=== PATIENT | female | born 1955 | race Caucasian/White ===

== ENCOUNTER 2020-08-18 10:18 | Outpatient (NON) | payer BC, SELFPAY ==
[2020-08-19 13:35] LABS: SARS-CoV-2 RNA PCR Positive
== END 2020-08-18 10:19 ==
PROVIDERS: PCP Family Medicine; Visit Provider Family Medicine
DX: U07.1 COVID-19 (principal)
CPT/HCPCS: 87635; C9803; U0003

== ENCOUNTER → 2020-10-04 09:18 | Outpatient (CLI) | payer BC, SELFPAY ==
--- NOTE | ~2020-10-04 | CT_ITS ---
EXAMINATION: CT lung screening EXAM DATE: 10/04/2020 09:40 INDICATION: Personal history of nicotine dependence. TECHNIQUE: Spiral low dose CT of the chest without contrast. Axial, coronal and sagittal images were reviewed. The dose-length product (DLP) for this examination was 293.54 mGy-cm. The exposure was t ailored according to patient size (auto mA exposure control), and iterative reconstruction (ASIR) was used as additional dose reduction technique. Comparison is made to prior examination from 10/03/2015 . FINDINGS: There is mild emphysema and hyperinflation. Some linear bibasilar scarring. No suspicious pulmonary nodules. Right basilar calcified granuloma. Tracheobronchial tree is patent. There is no mediastinal, hilar or axillary lymphadenopathy. There are no pleural or pericardial effusions. T here is no pneumothorax. Heart normal in size. No evidence of coronary arterial calcification. Up per abdomen is unremarkable. There is moderate thoracic spondylosis without osteoblastic or osteoly tic lesions identified. IMPRESSION: Lung-RADS category 1, negative (<1%chance of malignancy); recommend continued LDCT screen ing in 1 year. Reviewed, dictated and finalized at location B. AWYER IMPRESSION: Lung-RADS category 1, negative (<1%chance of malignancy); recommend continued LDCT screening in 1 year.
== END ==
PROVIDERS: PCP Family Medicine; Visit Provider Family Medicine
DX: E78.2 Mixed hyperlipidemia (principal); J44.9 Chronic obstructive pulmonary disease, unspecified; E66.01 Morbid (severe) obesity due to excess calories; Z79.899 Other long term (current) drug therapy
CPT/HCPCS: G0297

== ENCOUNTER → 2022-04-24 15:13 | Outpatient (CLI) | payer BC, SELFPAY ==
--- NOTE | ~2022-04-24 | CT_ITS ---
EXAMINATION: CT lung screening DATE: 04/24/2022 15:42 INDICATION: Personal history of tobacco dependence TECHNIQUE: Computed tomography (CT) of the chest was performed without intravenous contrast. The dose -length product was 285.62 mGy-cm. Automated exposure control and iterative reconstruction technique were employed. COMPARISON: CT dated 10/04/2020 FINDINGS: No significant pleural or pericardial effusion. Heart size is normal. No thoracic lymphaden opathy. There are calcified granulomas of the liver and spleen. No endobronchial lesions. Mild emphys bret. No pneumothorax. Calcified granuloma present right midlung. No new pulmonary nodules or masses. Moderate thoracic spondylosis. No acute osseous abnormality. IMPRESSION: 1. Lung-RADS category 1: Negative. Continue annual screening with noncontrast low-dose chest CT in 12 months. Reviewed, dictated and finalized at location A. IMPRESSION: 1. Lung-RADS category 1: Negative. Continue annual screening with noncontrast l ow-dose chest CT in 12 months.
== END ==
PROVIDERS: PCP Family Medicine; Visit Provider Family Medicine
DX: Z12.2 Encounter for screening for malignant neoplasm of respiratory organs (principal); Z87.891 Personal history of nicotine dependence
CPT/HCPCS: 71271

== ENCOUNTER → 2023-09-09 10:45 | Outpatient (CLI) | payer BC, SELFPAY ==
--- NOTE | ~2023-09-09 | CT_ITS ---
CT Scan of the Chest without Contrast: Clinical Indication: Lung screening, personal history of nicotine dependence Technique: Contiguous sections were acquired throughout the chest without intravenous contrast. Dose reduction technique was used on this scan by utilizing automated exposure control and iterative recon struction technique. The dose-length product (DLP) was 277.45 mGy-cm. COMPARISON: 04/24/2022 Findings: There is no evidence of any significant mediastinal, hilar or axillary lymphadenopathy. The mediastin al soft tissues appear normal. There is no evidence of pleural or pericardial effusion. There is probable minimal dependent atelectatic change in the right upper lobe. No pulmonary nodule e vident. Images through the upper abdomen reveal no abnormalities. Impression: Lung RADS 2: Benign appearance. 12 month follow-up screening CT advised. Reviewed, dictated and finalized at [facility]. ICAL NURSING MANAGER Impression: Lung RADS 2: Benign appearance. 12 month follow-up screening CT advised.
== END ==
PROVIDERS: PCP Family Medicine; Visit Provider Physician Assistant
DX: Z12.2 Encounter for screening for malignant neoplasm of respiratory organs (principal); Z87.891 Personal history of nicotine dependence
CPT/HCPCS: 71271

== ENCOUNTER 2025-09-02 09:27 | Outpatient (CLI) | payer MEDICARE, SELFPAY ==
--- NOTE | ~2025-09-02 | DEXA_ITS ---
Bone Density Report Name: AVELINA ALICEA Age: 70 Sex: Female Ethnicity: White Date of : 1955 Indication: postmenopausal; screening for osteoporosis; height loss; Referring Provider: GREG SPENCE Study: Bone densitometry was performed. Exam Date: September 02, 2025 Accession number: [id number] Bone Density: Region BMD T-score Z-score Classification AP Spine(L1-L4) 1.161 1.0 3.0 Normal Femoral Neck (Left) 0.592 -2.3 -0.6 Osteopenia Total Hip (Left) 0.877 -0.5 0.9 Normal World Health Organization criteria for BMD impression classify patients as: Normal (T-score at or above -1.0), Osteopenia (T-score between -1.0 and -2.5), or Osteoporosis (T-score at or below -2.5). 10-year Fracture Risk(1): Major Osteoporotic Fracture 10% Hip Fracture 1.9% Reported Risk Factors: [place] (), Neck BMD=0.592, BMI=48.1 (1) FRAX(R) Version 3.08. Fracture probability calculated for an untreated patient. Fracture probability may be lower if the patient has received treatment. Previous Exams: -- Region Exam Age BMD T-score BMD Change BMD Change Date g/cm2 vs Baseline vs Previous -- AP Spine (L1-L4) 09/02/2025 70 1.161 1.0 -1.3%# -1.3%# 02/25/2007 52 1.176 1.2 Total Hip(Left) 09/02/2025 70 0.877 -0.5 0.9%# 0.9%# 02/25/2007 52 0.870 -0.6 -- *Denotes significance at 95% confidence level, LSC for AP Spine = 0.022 g/cm2, LSC for Total Hip = 0.027 g/cm2 # Denotes dissimilar scan types or analysis methods Clinical Information Provided by Patient: Patient maximum height was 63 Menopause Age: 50 No regular weight bearing exercise Does not regularly consume dairy products Drinks caffeinated beverages Onset of menses at age 15 Number of children 4 Impression: The patient has low bone mass, based on the Left Femoral Neck T-score. The patient has an estimated ten-year risk of hip fracture of 1.9% and an estimated ten-year risk of major fracture of 10%, based on the WHO FRAX algorithm. Unable to evaluate interval change due to the use of different scan modes. Discussion: BONE DENSITY IS LOW AT ONE OR MORE SKELETAL SITES. This patient's lowest T-score is low at one or more skeletal sites. It meets the World Health Organization's (WHO) criteria for ?low bone mass? (T-score between -1.0 and -2.5). The patient's 10-year risk of fracture as calculated by FRAX is less than the threshold where pharmacological therapy is recommended by the National Osteoporosis Foundation (NOF). However, all treatment decisions require clinical judgment and consideration of individual patient factors, including patient preferences, comorbidities, previous drug use, risk factors not captured in the FRAX model (e.g., frailty, falls, vitamin D deficiency, increased bone turnover, interval significant decline in bone density) and possible under or overestimation of fracture risk by FRAX. The patient should follow a healthful lifestyle (good nutrition with adequate calcium and vitamin D, and appropriate weight-bearing exercise). Follow-Up: Consider repeating this study in 2 to 3 years to reassess this patient's status, or sooner if there is some new clinical indication. Reported by: TENZIN on 09/02/2025 9:50:00 AM. Reviewed, dictated and finalized at location A.
== END 2025-09-02 09:28 | disposition home or self-care (01) ==
LOC: MICIMG 09:28
PROVIDERS: PCP Family Medicine; Visit Provider Student in an Organized Health Care Education/Training Program
DX: M85.88 Other specified disorders of bone density and structure, other site (principal); Z78.0 Asymptomatic menopausal state
CPT/HCPCS: 77080

== ENCOUNTER 2025-09-10 13:03 | Emergency (ER) | payer MEDICARE, SELFPAY ==
--- OUTSIDE RECORDS SUMMARY | 2025-09-10 12:15 | XMS_ITS | Encounter Summary ---
Author Organization [facility] Healthcare Address [address] [place] [address] Care Team Providers Care Echocardiograph Technician Name Role Phone Leonard Garrido MD Unavailable [phone] Quita Garrido MD Primary Care Provider + Reason for Visit * Reason Comments URI Started a week ago t rachel, with sinus symptoms. Headache is worsening. Encounter Details Date Type Department Care Team (Late st Contact Info) Description 09/10/2025 12:15 PM DIRECTOR OF REAL ESTATE Office Visit [facility] at [address] [address] Jazmín Bills NP [address] [place] [address] [address] [place] [address] Viral upper respiratory tract infection (Primary Dx) Social History Tobacco Use Types Packs/Day Years Used Date Smoking Tobacco: Former Cigarettes 1 40 1 - 07/2016 Smokeless Tobacco: Never Alcohol Use Standard Drinks/Week Comments Yes 0 (1 standard drink = 0.6 oz pur e alcohol) 1-2 drinks/month AUDIT-C Answer Date Recorded Q1: How often do you have a drink containing alc ohol? Monthly or less 05/09/2023 Q2: How many drinks containi ng alcohol do you have on a typical day when you are drinking? 1 or 2 05/09/2023 Q3: How often do you have si x or more drinks on one occasion? Never 05/09/2023 Personal Safety Answer Date Recorded Have you ever been in or are you currently in a harmful physical or emotional relationship or is someone making you feel afraid or unsafe? Denies 05/09/2023 Comments No Sex and Gender Information Value Date Recorded Sex Assigned at Not on file Legal Sex Female 3:34 AM DIRECTOR OF REAL ESTATE Gender Identity Not on file Sexual Orientation Not on file documented as of this encounter Last Filed Vital Signs Vital Sign Reading Time Taken Comments Blood Pressure 112/84 09/10/2025 11:50 AM DIRECTOR OF REAL ESTATE Pulse 112 09/10/2025 11:50 AM DIRECTOR OF REAL ESTATE Temperature 36.9 C (98.4 F) 09/10/2025 11:50 AM DIRECTOR OF REAL ESTATE Respiratory Rate 22 09/10/2025 11:50 AM DIRECTOR OF REAL ESTATE Oxygen Saturation 95% 09/10/2025 11:50 AM DIRECTOR OF REAL ESTATE Inhaled Oxygen Concentration - - Weight 111.1 kg (245 lb) 09/10/2025 11:50 AM DIRECTOR OF REAL ESTATE Height - - Body Mass Index 46.29 12/01/2023 2:28 PM DIRECTOR OF REAL ESTATE documented in this encounter Functional Status documented as of this encounter Plan of Treatment Not on file documented as of this encounter Procedures Procedure Name Priority Date/Time Associated Diagnosis Comments POC INFLUENZA A/B, COVID-19 ANTIGEN Routine 09/10/2025 12:12 PM DIRECTOR OF REAL ESTATE Viral upper respiratory tract infection documented in this encounter Results * POC Influenza A/B, COVID-19 antigen (09/10/2025 12:12 PM DIRECTOR OF REAL ESTATE) Influenza A Ag, POC Negative Negative [facility] Influenza B Ag, POC Negative Negative [facility] COVID-19 Ag POC Presumptive Negative Presumptive Negative, Invalid [facility] Nasal 09/10/2025 12:1 2 PM DIRECTOR OF REAL ESTATE Jazmín Bills TRIAL MANAGEMENT ASSOCIATE POINT OF CARE TEST ORDERABL ES Final Result [facility] [address] [place] [address] documented in this encounter Visit Diagnoses Diagnosis Viral upper respiratory tract infection- Primary Acute upper respiratory infections of unspecified site documented in this encounter Discontinued Medications Medication Sig Discontinue Reason Start Date End Da te azithromycin (ZITHROMAX) 250 mg tablet Oral Therapy completed 12/13/2020 09/10/2025 doxycycline 100 mg tablet Take 1 tablet/capsule (100 mg total) by mouth 2 (two) times a day Therapy completed 11/26/2023 09/10/2025 documented as of this encounter Historical Medications * This list may reflect changes made after this encounter. valACYclovir (VALTREX) 1 gram tablet TAKE ONE TABLET BY MOUTH THREE TIMES A DAY FOR 7 DAYS 06/27/2025 predniSONE (DELTASONE) 50 mg tablet Take 1 tablet (50 mg) by mouth daily 09/05/2025 busPIRone (BUSPAR) 10 mg tablet Oral 12/13/2020 amoxicillin-clavu lanate (AUGMENTIN) 875-125 mg per tablet Take 1 tablet by mouth 2 (two) times a day 09/05/2025 azithromycin (ZITHROMAX) 250 mg tablet Oral 12/13/2020 09/10/2025 added in this encounter Care Teams Echocardiograph Technician Relationship Specialty Start Date End Date Quita Garrido MD PCP - General Family Medicine 11/05/22 Leonard Garrido MD 05/01/18 documented as of this encounter
--- OUTSIDE RECORDS SUMMARY | 2025-09-10 12:15 | XMS_ITS | Encounter Summary ---
Author Organization [facility] Healthcare Address [address] [place] [address] Care Team Providers Care Soda Dispenser Name Role Phone Leonard Garrido MD Unavailable [phone] Quita Garrido MD Primary Care Provider + Reason for Visit * Reason Comments URI Started a week ago t rachel, with sinus symptoms. Headache is worsening. Encounter Details Date Type Department Care Team (Late st Contact Info) Description 09/10/2025 12:15 PM POSTDOCTORAL SCHOLAR Office Visit [facility] at [address] [address] Jazmín Bills NP [address] [place] [address] [address] [place] [address] Viral upper respiratory tract infection [...] on file Legal Sex Female 3:34 AM POSTDOCTORAL SCHOLAR Gender Identity Not on file Sexual Orientation Not on file documented as of this encounter Last Filed Vital Signs Vital Sign Reading Time Taken Comments Blood Pressure 112/84 09/10/2025 11:50 AM POSTDOCTORAL SCHOLAR Pulse 112 09/10/2025 11:50 AM POSTDOCTORAL SCHOLAR Temperature 36.9 C (98.4 F) 09/10/2025 11:50 AM POSTDOCTORAL SCHOLAR Respiratory Rate 22 09/10/2025 11:50 AM POSTDOCTORAL SCHOLAR Oxygen Saturation 95% 09/10/2025 11:50 AM POSTDOCTORAL SCHOLAR Inhaled Oxygen Concentration - - Weight 111.1 kg (245 lb) 09/10/2025 11:50 AM POSTDOCTORAL SCHOLAR Height - - Body Mass Index 46.29 12/01/2023 2:28 PM POSTDOCTORAL SCHOLAR documented in this encounter Functional Status documented as of this encounter Plan of Treatment Not on file documented as of this encounter Procedures Procedure Name Priority Date/Time Associated Diagnosis Comments POC INFLUENZA A/B, COVID-19 ANTIGEN Routine 09/10/2025 12:12 PM POSTDOCTORAL SCHOLAR Viral upper respiratory tract infection documented in this encounter Results * POC Influenza A/B, COVID-19 antigen (09/10/2025 12:12 PM POSTDOCTORAL SCHOLAR) Influenza A Ag, POC Negative Negative [facility] Influenza B Ag, POC Negative Negative [facility] COVID-19 Ag POC Presumptive Negative Presumptive Negative, Invalid [facility] Nasal 09/10/2025 12:1 2 PM POSTDOCTORAL SCHOLAR Jazmín Bills WASTE DUSTER POINT OF CARE TEST ORDERABL ES Final Result [facility] [address] [place] [address] documented in this encounter Visit Diagnoses Diagnosis [...] 09/10/2025 added in this encounter Care Teams Soda Dispenser Relationship Specialty Start Date End Date Quita Garrido MD PCP - General Family Medicine 11/05/22 Leonard Garrido MD 05/01/18 documented as of this encounter
--- OUTSIDE RECORDS SUMMARY | 2025-09-10 13:06 | XMS_ITS | Clinical Summary ---
Author Organization [facility] Medical Office Building B Address [address] [place] [address] Care Team Providers Care Wood Grainer Name Role Phone Leonard Garrido MD Unavailable [phone] Quita Garrido MD Primary Care Provider + Allergies Active Allergy Reactions Criticality Noted Date Comments Shellfish Containing Products Anaphylaxis High 05/11/2018 Throat swells closed Medications pantoprazole DR (PROTONIX) 40 mg EC tabletIndicatio ns:Stress Ulcer Prophylaxis Take 1 tablet (40 mg total) by mouth nightly 1 8 Active chlorthalidone 25 mg tabletIndicatio ns:Edema Take 1 tablet (25 mg total) by mouth equalizer operator before breakfast 2 Active ALPRAZolam (XANAX) 0.25 mg tabletIndicatio ns:anxiety Take 1 tablet (0.25 mg total) by mouth 3 (three) times a day as needed for anxiety Active traMADoL (ULTRAM) 50 mg tablet Take 1 tablet (50 mg total) by mouth every 8 (eight) hours as needed for pain 42 tablet 3 Active cyclobenzaprine (FLEXERIL) 5 mg tablet Take 1 tablet (5 mg total) by mouth 3 (three) times a day as needed for muscle spasms Active albuterol HFA (PROVENTIL HFA,VENTOLIN HFA,PROAIR HFA) 90 mcg/actuation inhaler 2 INHALED EVERY 4 HOURS 3 Active Contrave 8-90 mg tablet extended release PLEASE SEE ATTACHED FOR DETAILED DIRECTIONS 4 Active meloxicam (MOBIC) 15 mg tablet 15 MG ORALLY DAILY 4 Active fluticasone-ume clidin-vilanter (Trelegy Ellipta) 200-62.5-25 mcg inhalerIndicati ons:Chronic obstructive pulmonary disease, unspecified COPD type (HCC) Inhale 1 puff daily 60 each 4 4 Active amoxicillin-cla vulanate (AUGMENTIN) 875-125 mg per tablet Take 1 tablet by mouth 2 (two) times a day 5 Active busPIRone (BUSPAR) 10 mg tablet Oral 1 Active predniSONE (DELTASONE) 50 mg tablet Take 1 tablet (50 mg) by mouth daily 5 Active valACYclovir (VALTREX) 1 gram tablet TAKE ONE TABLET BY MOUTH THREE TIMES A DAY FOR 7 DAYS 5 Active doxycycline 100 mg tablet Take 1 tablet/capsule (100 mg total) by mouth 2 (two) times a day 4 09/10/20 25 Discontin ued(Thera py completed ) azithromycin (ZITHROMAX) 250 mg tablet Oral 1 09/10/20 25 Discontin ued(Thera py completed ) Active Problems Problem Noted Date Diagnosed Date Anxiety 09/10/2025 Cardiomegaly 09/10/2025 Hearing loss, right 09/10/2025 Lumbosacral radiculopathy at L2 09/10/2025 Major depressive disorder with single episode Mixed hyperlipidemia 09/10/2025 Nicotine dependence, unspecified, in remission 1 11/10/2024 Prediabetes 09/10/2025 Chronic obstructive pulmonary disease, unspecifi ed 09/10/2025 Emphysema of lung 09/10/2025 Obesity 09/10/2025 Severe obesity (BMI >= 40) 09/10/2025 Degenerative joint disease of right hip 09/10/20 25 Chronic obstructive pulmonary disease 11/07/2023 Dyspnea and respiratory abnormalities 11/07/2023 S/P total right hip arthroplasty 05/09/2023 Primary osteoarthritis of right hip 04/01/2023 Other specified abdominal he rnia without obstruction or gangrene 08/05/2018 Overview (08/05/2018): Added automatically from request for surgery [id number] Inguinal hernia of right landy e without obstruction or gangrene 05/19/2018 Assessment & Plan (05/19/2018 3:08 PM CDT): Patient would like to surgically repair this however she is being treated for acoustic neuroma in a few weeks which takes priority, she and her were educated on symptoms of incarcerated hernia in which to have evaluated immediately. She was also educated on weight loss prior to surgery which she understands. 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 Encounters Date Type Department Care Team Description 09/10/2025 12:15 PM ELECTRONIC GAMING DEVICE SUPERVISOR Office Visit [facility] at [address] [phone] Jazmín Bills, BHARATHI Viral upper respiratory tract infection (Primary Dx) 08/09/2025 6:49 AM CDT - 08/09/2025 11:59 PM CDT Hospital Encounter [address] [address] Screening mammogram, encounter for Discharge Disposition: Discharge to home or self care from Last 3 Months Immunizations Immunization Administration Dates Next Due Hep A, Adult 09/27/2020 Hep B Vaccine 03/05/2000,09/20/1999,08/09/1999 Pneumococcal Conjugate 7-Valent 10/13/2017 Pneumococcal Conjugate PCV 13 04/16/2022 Pneumococcal Polysaccharide PPV23 03/04/2018 Tdap 03/04/2018 Surgical History Surgery Date Site/Laterality Comments CRANIECTOMY FOR EXCISION OF ACOUSTIC NEUROMA 05/30/2018 Right Right Acoustic Neuroma removed INGUINAL HERNIA REPAIR 09/01/2018 Right DaVinci Robotic Assisted Right Inguinal Hernia Repair WISDOM TOOTH EXTRACTION 10/13/1978 - 10/12/1979 TOTAL HIP ARTHROPLASTY 05/09/2023 Right Medical History Medical History Date Comments Anxiety History of anxie ty - (Added by TW Conv) Acoustic neuroma (HCC) Chronic back pain Inguinal hernia, right Deaf, right COPD (chronic obstructive pu lmonary disease) Morbid obesity (HCC) Diabetes mellitus Dxd 2021 GERD (gastroesophageal reflux disease) Family History Medical History Relation Name Comments Arthritis Father Family history of arthritis - (Added by TW Conv) Diabetes Father Family history of diabetes mellitus - (Added by TW Conv) Hypertension Father Family history of hypertension - (Added by TW Conv) Kidney disease Father Family histor y of kidney disease - (Added by TW Conv) Arthritis Mother Family history of arthritis - (Added by TW Conv) Diabetes Mother Family history of diabetes mellitus - (Added by TW Conv) Hypertension Mother Family history of hypertension - (Added by TW Conv) Cancer Other Gout Other Stroke Other Breast cancer Paternal Grandmother Hypertension Sister Anesthesia problems Neg Hx Relation Name Status Comments Father Mother Other Paternal Grandmother Sister Social History Tobacco Use Types Packs/Day Years Used Date Smoking Tobacco: Former Cigarettes 1 40 1 - 07/2016 Smokeless Tobacco: Never Tobacco Cessation:Counseling Given: Not Answered Alcohol Use Standard Drinks/Week Comments Yes 0 [...] on file Legal Sex Female 3:34 AM ELECTRONIC GAMING DEVICE SUPERVISOR Gender Identity Not on file Sexual Orientation Not on file Obstetrics History Para Term AB IAB SAB Ectopic Multiple Livin g Live Births 4 4 Date Outcome GA Total Labor Labor/2nd/3rd Weight Sex Type Anes PTL Lizzie A1 A5 Name Clin Last Filed Vital Signs Vital Sign Reading Time Taken Comments Blood Pressure 112/84 09/10/2025 11:50 AM ELECTRONIC GAMING DEVICE SUPERVISOR Pulse 112 09/10/2025 11:50 AM ELECTRONIC GAMING DEVICE SUPERVISOR Temperature 36.9 C (98.4 F) 09/10/2025 11:50 AM ELECTRONIC GAMING DEVICE SUPERVISOR Respiratory Rate 22 09/10/2025 11:50 AM ELECTRONIC GAMING DEVICE SUPERVISOR Oxygen Saturation 95% 09/10/2025 11:50 AM ELECTRONIC GAMING DEVICE SUPERVISOR Inhaled Oxygen Concentration - - Weight 111.1 kg (245 lb) 09/10/2025 11:50 AM ELECTRONIC GAMING DEVICE SUPERVISOR Height 154.9 cm (5' 1) 12/01/2023 2:28 PM ELECTRONIC GAMING DEVICE SUPERVISOR Body Mass Index 46.29 12/01/2023 2:28 PM ELECTRONIC GAMING DEVICE SUPERVISOR Plan of Treatment Health Maintenance Due Date Last Done Comments Colon Cancer Screening-Colonoscopy 1955 Depression Screening 1957 Hepatitis C Screening 1957 Osteoporosis Screening-Bone Density Scan 1957 Zoster Vaccine (1 of 2) 2007 Well Visit 65+ 2022 Fall Risk Assessment 05/09/2024 05/09/2023 Lung Cancer Screening 09/09/2024 09/09/2023 Covid-19 Vaccine (3 - season) 2025, 01/11/2021 Influenza Vaccine (#1) 2025 Breast Cancer Screening-Mammogram 08/09/2026 025 Pneumococcal vaccine 65+ (3 of 3 - PCV20 or PCV21) 04/16/2027 04/16/2022, 03/04/2018, 10/13/2017 DTaP/Tdap/Td Vaccine (2 - Td or Tdap) 03/04/2028 Hepatitis B Screening Completed 03/05/2000 , 09/20/1999, 08/09/1999 Medical Devices Implanted Type Area Inspector Golf Ball Device Identifier Shelf Expiration Date Model / Serial / Lot Medtronic Inc [id number] Progrip 15x9cm Self [employer] And Silverware Salesperson Rectangle Mesh Surgical Polyester Hernia - [id number] Implanted:Qty: 1 on 09/01/2018 by Oscar Eckert MD at [facility] N/A: Abdomen Medtronic Inc 08/12/2022 [id number] / / [id number] [employer] G7 50mm Multihole Hip D Hemisphere Offset Shell Acetabular [id number] - [id number] Implanted:Qty: 1 on 05/09/2023 by Dorie Morales MD at [facility] Right: Hip [employer] [id number] 01/17/2033 [id number] / / [id number] Blu [employer] Trilogy 6.5mm 20mm Self Tap Screw Bone [id number] - [id number] Implanted:Qty: 1 on 05/09/2023 by Dorie Morales MD at [facility] Right: Hip [employer] [id number] 10/26/2032 [id number] / / [id number] [employer] Trilogy 6.5mm 25mm Self Tap Screw Bone [id number] - [id number] Implanted:Qty: 1 on 05/09/2023 by Dorie Morales MD at [facility] Right: Hip [employer] [id number] 11/26/2032 [id number] / / [id number] [employer] G7 40mm 2 Mobility Hip D Liner Acetabular Cocr [id number] - [id number] Implanted:Qty: 1 on 05/09/2023 by Dorie Morales MD at [facility] Right: Hip [employer] [id number] 04/08/2033 [id number] / / [id number] [employer] Taperloc 144mm Type 1 Complete Press Fit Reduce Distal 133d 12 [id number] - [id number] Implanted:Qty: 1 on 05/09/2023 by Dorie Morales MD at [facility] Right: Hip [employer] [id number] 12/16/2032 [id number] / / [id number] [employer] 40mm 28mm Lumen Hip D Liner Acetabular Longevity Sterile Latex [id number] - [id number] Implanted:Qty: 1 on 05/09/2023 by Dorie Morales MD at [facility] Right: Hip [employer] [id number] 11/20/2027 [id number] / / [id number] [employer] G7 28mm Type 1 Modular Hip Acetabular 0mm Offset Head Femoral 650-1158 - [id number] Implanted:Qty: 1 on 05/09/2023 by Dorie Morales MD at [facility] Right: Hip [employer] [id number] 12/26/2031 650-1158 / / [id number] Procedures Procedure Name Priority Date/Time Associated Diagnosis Comments POC INFLUENZA A/B, COVID-19 ANTIGEN Routine 09/10/2025 12:12 PM ELECTRONIC GAMING DEVICE SUPERVISOR Viral upper respiratory tract infection SCREENING MAMMOGRAM BILATERAL W KULDIP Schedule Routine, Read Routine (OP Routine) 08/09/2025 7:02 AM CDT Screening mammogram, encounter for CT LUNG CANCER SCREENING Schedule Routine, Read Routine (OP Routine) 09/09/2023 1:55 PM ELECTRONIC GAMING DEVICE SUPERVISOR from Last 3 Months or Most Recently Relevant to Health Maintenance Results * POC Influenza A/B, COVID-19 antigen (09/10/2025 12:12 PM ELECTRONIC GAMING DEVICE SUPERVISOR) Influenza A Ag, POC Negative Negative [facility] Influenza B Ag, POC Negative Negative [facility] COVID-19 Ag POC Presumptive Negative Presumptive Negative, Invalid [facility] Nasal 09/10/2025 12:1 2 PM ELECTRONIC GAMING DEVICE SUPERVISOR Jazmín Bills HOT IRON WORKER POINT OF CARE TEST ORDERABL ES Final Result [facility] [address] [place] [address] * Screening Mammogram Bilateral W Kuldip (08/09/2025 7:02 AM CDT) Anatomical Region Laterality Modality Breast Bilateral Mammography Impressions 08/11/2025 9:19 AM CDT Bilateral No evidence of malignancy in either breast. OVERALL BI-RADS FINAL ASSESSMENT: 2 - Benign RECOMMENDATION: Recommend bilateral annual screening mammography. Narrative 08/11/2025 9:19 AM CDT EXAMINATION: Screening Mammogram Bilateral W Kuldip: 08/09/2025 COMPARISON: Relevant prior studies available at the time of interpretation were reviewed, including the most recent mammogram on: 05/07/2022. TECHNIQUE: Mammography was performed with 2D and 3D digital breast tomosynthesis (DBT) images. CAD was utilized. BREAST PARENCHYMAL COMPOSITION: There are scattered areas of fibroglandular density. FINDINGS: Bilateral There is stable nodularity in both breasts. There is no suspicious mass, calcification, or architectural distortion in either breast. us Self Screening Mammogram IMG MAMMO PROCEDURES Fi nal Result * CT Lung Cancer Screening (09/09/2023 1:55 PM ELECTRONIC GAMING DEVICE SUPERVISOR) Anatomical Region Laterality Modality Chest N/A Computed Tomogra phy us Historical Provider IMG CT PROCEDURES Final R esult from Last 3 Months or Most Recently Relevant to Health Maintenance Insurance [facility] MEDICARE MEDICARE MEDICARE [facility] Advance Directives For more information, please contact: [phone] * Full Code (Latest Code Status on File) Date Activated Date Inactivated Comments 05/09/2023 1:52 PM 05/10/2023 4:52 PM Care Teams Wood Grainer Relationship Specialty Start Date End Date Quita Garrido MD PCP - General Family Medicine 11/05/22 Leonard Garrido MD 05/01/18
--- OUTSIDE RECORDS SUMMARY | 2025-09-10 13:06 | XMS_ITS | Patient Health Record ---
Author Organization [facility] As Local[facility] Address [address] [place] [address] Care Team Providers Care Database Designer Name Role Phone Hugo Sousa Unavailable [phone] Reason For Referral No Information Medications Medication SIG (Take, Route, Frequency, Duration) Notes Start Date End Date Status busPIRone HCl 10 MG Tablet Oral 12/13/2020 Active Indomethacin ER 75 MG Capsul e Extended Release Oral 12/13/2020 Active Azithromycin 250 MG Tablet Oral 12/13/2020 Active Chlorthalidone 25 MG Tablet Oral 12/13/2020 Active Pantoprazole Sodium 40 MG Tablet Delayed Release Oral 12/13/2020 Activ e Anoro Ellipta 62.5-25 MCG/IN H Aerosol Powder Breath Activated Inhalation 12/13/2020 Active Cyclobenzaprine HCl 5 MG Tablet Oral 12/13/2020 Active Immunizations Vaccine Route Administration Date Status Comme nts Pneumococcal conjugate PCV 7 Unknown 10/13/2017 Adminis tered Social History Social History Additional Details Category Social Info Options Details Migrated Social History Migrated Social History Alcohol Intake: Occasional 09/21/2020,Tobacco Years: Former smoker 09/21/2020,Smoking Status: 38 12/13/2020 Plan Of Treatment No Information Insurance Providers Payer Name Payer Address Payer Phone Subscriber Number Group Number Insured Name Patient Relationship to Insured Coverage Start Date Coverage End Date [employer] [employer] [address] [place] [address] [id number] [place] HUGO ALICEA Self - patient is the insured Medical (General) History Surgical History Surgery Date(Month/Year) Excision of neuroma of sciatic nerve ([id number]) Neurosurgery 05/20/2018 Hernia repair w/mesh (40251) 09/12/2018
[2025-09-10 13:13] VITALS: BP 147/95; PULSE 115; RESP 20; TEMP 36.6; O2SAT 94
[2025-09-10 13:25] VITALS: RESP 20; O2SAT 93
--- OUTSIDE RECORDS SUMMARY | 2025-09-10 13:34 | XMS_ITS | Clinical Summary ---
Author Organization [facility] Medical Office Building B Address [address] [place] [address] Care Team Providers Care Payable Processor Name Role Phone Leonard Garrido MD Unavailable Quita Garrido MD Primary Care Provider + Allergies Active Allergy Reactions Criticality Noted Date Comments Shellfish Containing Products Anaphylaxis High 05/11/2018 Throat swells closed Medications pantoprazole DR (PROTONIX) 40 mg EC tabletIndicatio ns:Stress Ulcer Prophylaxis Take 1 tablet (40 mg total) by mouth nightly 1 8 Active chlorthalidone 25 mg tabletIndicatio ns:Edema Take 1 tablet (25 mg total) by mouth merit system director before breakfast 2 Active ALPRAZolam (XANAX) 0.25 [...] (08/05/2018): Added automatically from request for surgery [id number] Inguinal hernia of right landy e without [...] Department Care Team Description 09/10/2025 12:15 PM FITTER TYPE BAR AND SEGMENT Office Visit [facility]ient Care at [address] [phone] Jazmín Bills, BHARATHI Viral upper respiratory tract infection (Primary Dx) 08/09/2025 6:49 AM CDT - 08/09/2025 11:59 PM CDT Hospital Encounter [address] [address] Screening mammogram, encounter for Discharge Disposition: Discharge [...] on file Legal Sex Female 3:34 AM FITTER TYPE BAR AND SEGMENT Gender Identity Not on file Sexual Orientation Not on file Obstetrics History Para Term AB IAB SAB Ectopic Multiple Livin g Live Births 4 4 Date Outcome GA Total Labor Labor/2nd/3rd Weight Sex Type Anes PTL Lizzie A1 A5 Name Clin Last Filed Vital Signs Vital Sign Reading Time Taken Comments Blood Pressure 112/84 09/10/2025 11:50 AM FITTER TYPE BAR AND SEGMENT Pulse 112 09/10/2025 11:50 AM FITTER TYPE BAR AND SEGMENT Temperature 36.9 C (98.4 F) 09/10/2025 11:50 AM FITTER TYPE BAR AND SEGMENT Respiratory Rate 22 09/10/2025 11:50 AM FITTER TYPE BAR AND SEGMENT Oxygen Saturation 95% 09/10/2025 11:50 AM FITTER TYPE BAR AND SEGMENT Inhaled Oxygen Concentration - - Weight 111.1 kg (245 lb) 09/10/2025 11:50 AM FITTER TYPE BAR AND SEGMENT Height 154.9 cm (5' 1) 12/01/2023 2:28 PM FITTER TYPE BAR AND SEGMENT Body Mass Index 46.29 12/01/2023 2:28 PM FITTER TYPE BAR AND SEGMENT Plan of Treatment Health Maintenance Due Date [...] 09/20/1999, 08/09/1999 Medical Devices Implanted Type Area Washing Machine Repairer Device Identifier Shelf Expiration Date Model / Serial / Lot Medtronic Inc [id number] Progrip 15x9cm Self Demand Planning Manager Rectangle Mesh Surgical Polyester Hernia - [id number] Implanted:Qty: 1 on 09/01/2018 by Oscar Eckert MD at [facility] N/A: Abdomen Med[employer] Inc 08/12/2022 [id number] / / [id number] [employer] G7 50mm Multihole Hip D Hemisphere Offset Shell Acetabular [id number] - [id number] Implanted:Qty: 1 on 05/09/2023 by Dorie Morales MD at [facility] Right: Hip [employer] [id number] 01/17/2033 [id number] / / [id number] [employer] Trilogy 6.5mm 20mm Self Tap Screw Bone [id number] - [id number] Implanted:Qty: 1 on 05/09/2023 by Dorie Morales MD at [facility] Right: Hip [employer] [id number] 10/26/2032 [id number] / / [id number] [employer] Trilogy 6.5mm 25mm Self Tap Screw Bone [id number] - [id number] Implanted:Qty: 1 on 05/09/2023 by Dorie Morales MD at [facility] Right: Hip [employer] [id number] 11/26/2032 [id number] / / [id number] [employer] G7 40mm 2 Mobility Hip D Liner Acetabular Cocr [id number] - [id number] Implanted:Qty: 1 on 05/09/2023 by Dorie Morales MD at [facility] Right: Hip [employer] [id number] 04/08/2033 [id number] / / [id number] [employer] Taperloc 144mm Type 1 Complete Press Fit Reduce Distal 133d 12 [id number] - [id number] Implanted:Qty: 1 on 05/09/2023 by Dorie Morales MD at [facility] Right: Hip [employer] [id number] 12/16/2032 [id number] / / [id number] [employer] 40mm 28mm Lumen Hip D Liner Acetabular Longevity Sterile Latex [id number] - [id number] Implanted:Qty: 1 on 05/09/2023 by Dorie Mroales MD at [facility] Right: Hip [employer] [id number] 11/20/2027 [id number] / / [id number] [employer] G7 28mm Type 1 Modular Hip Acetabular 0mm Offset Head Femoral 650-1158 - [id number] Implanted:Qty: 1 on 05/09/2023 by Dorie Morales MD at [facility] Right: Hip [employer] [id number] 12/26/2031 650-1158 / / [id number] Procedures Procedure Name Priority Date/Time Associated Diagnosis Comments POC INFLUENZA A/B, COVID-19 ANTIGEN Routine 09/10/2025 12:12 PM FITTER TYPE BAR AND SEGMENT Viral upper respiratory tract infection SCREENING MAMMOGRAM BILATERAL W KULDIP Schedule Routine, Read Routine (OP Routine) 08/09/2025 7:02 AM CDT Screening mammogram, encounter for CT LUNG CANCER SCREENING Schedule Routine, Read Routine (OP Routine) 09/09/2023 1:55 PM FITTER TYPE BAR AND SEGMENT from Last 3 Months or Most Recently Relevant to Health Maintenance Results * POC Influenza A/B, COVID-19 antigen (09/10/2025 12:12 PM FITTER TYPE BAR AND SEGMENT) Influenza A Ag, POC Negative Negative [facility] Influenza B Ag, POC Negative Negative [facility] COVID-19 Ag POC Presumptive Negative Presumptive Negative, Invalid [facility] Nasal 09/10/2025 12:1 2 PM FITTER TYPE BAR AND SEGMENT Jazmín Bills POOLROOM/POOLHALL MANAGER POINT OF CARE TEST ORDERABL ES Final Result [facility] [address] [place] [address] * Screening Mammogram Bilateral W Kuldip (08/09/2025 [...] CT Lung Cancer Screening (09/09/2023 1:55 PM FITTER TYPE BAR AND SEGMENT) Anatomical Region Laterality Modality Chest N/A Computed Tomogra phy us Historical Provider IMG CT PROCEDURES Final R esult from Last 3 Months or Most Recently Relevant to Health Maintenance Insurance [facility] MEDICARE MEDICARE MEDICARE [facility] Advance Directives For more information, please contact: [phone] * Full Code (Latest Code Status on File) Date Activated Date Inactivated Comments 05/09/2023 1:52 PM 05/10/2023 4:52 PM Care Teams Payable Processor Relationship Specialty Start Date End Date Qiuta Garrido MD PCP - General Family Medicine 11/05/22 Leonard Garrido MD 05/01/18
[2025-09-10] MEDS: SODIUM CHLORIDE 0.9% IV 1,000 ML 999 ML IV CONT (13:59)
[2025-09-10] MEDS: KETOROLAC 30 MG/ML VIAL (*BKC) IV PUSH (14:00)
[2025-09-10 14:12] LABS: Hematocrit 44.1 % (37.0-47.0); Hemoglobin 14.6 g/dL (12.0-15.0); Immature Granulocyte Percent A 0.5 % (0-0.5); Lymphocytes Absolute Auto 3.56 K/mm3 (0.9-3.2); Mean Corpuscular HGB Conc 33.1 g/dl (32-36); Mean Corpuscular Hemoglobin 30.3 pg (26-34); Mean Corpuscular Volume 91.5 fl (80-100); Nucleated Red Blood Cells Absolute Auto 0.000 K/mm3 (0.0-0.012); Nucleated Red Blood Cells Perc 0.0 % (0.0-0.2); Platelet Count Result 356 k/mm3 (150-375); Red Blood Count 4.82 M/mm3 (4.2-5.4); White Blood Count 10.3 K/mm3 (4.5-10.0)
--- NOTE | 2025-09-10 14:12 | ED_ITS ---
HPI - General Adult General Chief complaint: Unspecified Stated complaint: multiple medical complaints Time Seen by Provider: 09/10/25 13:16 History of Present Illness HPI narrative: Patient is a 70-year-old female who presents ER with paresthesia of her skin diffusely over her body. Ongoing for 5 days. She started antibiotics 6 days ago but quit at 2 days ago. She has been on GLP1 inhibitor for last 6 months. She did not take a dose of it yesterday. No chest pain or chest pressure. Reports she has been eating and drinking without significant issue. No known sick contacts. She does report some subjective fevers and chills over last couple of days. No history of neuropathy. Related Data Allergies Allergy/AdvReac Type Severity Reaction Status Date / Time shellfish derived Allergy Unknown Skin Verified 09/10/25 13:19 Reaction metformin AdvReac Severe severe Verified 09/10/25 13:19 muscle pain Review of Systems 2 Review of Systems: All systems reviewed & are unremarkable except as noted in HPI and below Constitutional: Constitutional: Reports no additional constitutional complaints ENT: Reports system reviewed and no additional complaints, except as documented Cardiovascular: Cardiovascular: Reports no additional cardiovascular complaints Respiratory: Respiratory: Reports no additional respiratory complaints Integumentary/Breasts: Skin/Breast: Reports system reviewed and no additional complaints, except as docu PMFSH Past Medical History Medical History Internal derangement of right knee COVID-19 Anxiety Chondromalacia patellae, left knee Major depressive disorder with single episode Right acoustic neuroma Right inguinal hernia Surgical History Surgical History History of hip replacement Right 05/09/2023 Family History Family History Father Myeloblastic leukemia Carcinoma of colon stage 4 Social History Social History (Updated 08/25/25 @ 13:03 by Gaby Martinez MA) Smoking status: Former smoker Smoking end date: 10/13/15 Alcohol intake: current Alcohol use details: rarely Substance use: never Substance use type: does not use Lack of Transportation: No Lack of Food: Never True Current Housing: I Have Housing Concerned About Future Housing: No Difficulty Paying Gas/Electric Bills: No Difficulty Paying for Meds: No Currently Unemployed: No Education: High School Diploma/GED Difficulty w/ Childcare or Family Care: No Exam 2 Narrative: GENERAL: Well-appearing, well-nourished, and in no acute distress. HEAD: Normocephalic, atraumatic. ENT: Mucous membranes moist. CHEST: Clear to auscultation. No respiratory distress. HEART: Regular rate and rhythm. Normal peripheral pulses. ABDOMEN: Soft, nontender, nondistended. EXTREMITIES: Normal range of motion. No edema. SKIN: Warm, dry, no rash. NEURO: Alert and oriented x3. PSYCH: Normal mood and affect. Course Course Emergency Course: patient reports mild improvement with IV fluid and Toradol. Still has occasional waves of the tingling. Urinalysis concerning for infection so she will be started on antibiotic. Recommend follow-up with PCP. Vital Signs Vital signs: Vital Signs Temperature 97.8 F 09/10/25 13:13 Pulse Rate 115 H 09/10/25 13:13 Respiratory Rate 20 09/10/25 13:13 Blood Pressure 147/95 H 09/10/25 13:13 Pulse Oximetry 94 09/10/25 13:13 Oxygen Delivery Room Air 09/10/25 13:13 Temperature 97.8 F 09/10/25 13:13 Pulse Rate 98 09/10/25 15:06 Respiratory Rate 19 09/10/25 15:06 Blood Pressure 98/77 L 09/10/25 15:06 Pulse Oximetry 95 09/10/25 15:06 Oxygen Delivery Room Air 09/10/25 13:13 Medical Decision Making Differential Diagnosis Differential Diagnosis: Diabetic neuropathy, contact dermatitis the paresthesia, electrolyte disturbance, hypothyroidism, nutritional deficiency, medication side effect Vital Signs Vital Signs: Vital Signs Temperature 97.8 F 09/10/25 13:13 Pulse Rate 115 H 09/10/25 13:13 Respiratory Rate 20 09/10/25 13:13 Blood Pressure 147/95 H 09/10/25 13:13 Pulse Oximetry 94 09/10/25 13:13 Oxygen Delivery Room Air 09/10/25 13:13 Temperature 97.8 F 09/10/25 13:13 Pulse Rate 98 09/10/25 15:06 Respiratory Rate 19 09/10/25 15:06 Blood Pressure 98/77 L 09/10/25 15:06 Pulse Oximetry 95 09/10/25 15:06 Oxygen Delivery Room Air 09/10/25 13:13 Lab Data 09/10/25 13:56 09/10/25 13:56 Labs: Lab Results 09/10/25 09/10/25 Range/Units 13:56 14:11 WBC 10.3 H (4.5-10.0) K/mm3 RBC 4.82 (4.2-5.4) M/mm3 Hgb 14.6 (12.0-15.0) g/dL Hct 44.1 (37.0-47.0) % MCV 91.5 (80-100) fl MCH 30.3 (26-34) pg MCHC 33.1 (32-36) g/dl RDW 15.0 H (11.5-14.5) % Plt Count 356 (150-375) k/mm3 MPV 9.8 (7.4-10.4) fl Immature Gran % (Auto) 0.5 (0-0.5) % Neut % (Auto) 55.0 (45.5-73.1) % Lymph % (Auto) 34.5 (18.3-44.2) % [place] % (Auto) 9.1 H (2.6-8.5) % Eos % (Auto) 0.5 (0-4.4) % Baso % (Auto) 0.4 (0.2-1.2) % Lymph # (Auto) 3.56 H (0.9-3.2) K/mm3 [place] # (Auto) 0.9 H (0.1-0.6) K/mm3 Eos # (Auto) 0.1 (0-0.3) K/mm3 Baso # (Auto) 0.0 (0.0-0.1) K/mm3 Abs Immat Gran (auto) 0.05 H (0.00-0.031) K/mm3 Absolute Neuts (auto) 5.7 (1.3-6.7) K/mm3 Absolute Nucleated RBC 0.000 (0.0-0.012) K/mm3 Nucleated RBC % 0.0 (0.0-0.2) % Sodium 136 L (137-145) mmol/L Potassium 3.4 (3.4-5.0) mmol/L Chloride 98 (98-107) mmol/L Carbon Dioxide 32 H (22-30) mmol/L Anion Gap 6 (4-12) mmol/L BUN 17 (7-17) mg/dL Creatinine 0.98 (0.7-1.0) mg/dL Estim Creat Clear Calc 55 ml/min Estimated GFR 56 L (59 - ) Glucose 101 (65-110) mg/dL Calcium 9.7 (8.4-10.2) mg/dL Magnesium 1.7 (1.6-2.3) mg/dL Iron 60 (37-170) ug/dL TIBC 352 (261-462) ug/dL % Saturation 17 L (20-50) % Total Bilirubin 0.4 (0.2-1.3) mg/dL AST 26 (14-36) U/L ALT 21 (6-35) U/L Alkaline Phosphatase 64 (38-126) U/L Total Protein 8.0 (6.3-8.2) g/dL Albumin 4.4 (3.5-5.1) g/dL Vitamin B12 579.0 (239-931) pg/mL Folate 8.6 (2.76->20) ng/mL TSH (Reflex) 1.040 (0.465-4.68) uIU/mL Urine Color Dark yellow (Yellow) Urine Appearance Turbid H (Clear) Urine pH 5.0 (5.0-9.0) Ur Specific [place] 1.026 (1.001-1.035) Urine Protein 1+ H (Negative) mg/dL Urine Glucose (UA) Negative (Negative) mg/dL Urine Ketones 1+ H (Negative) mg/dL Ur Blood (Man) 1+ H (Negative) Urine Nitrate Negative (Negative) Urine Bilirubin Negative (Negative) Urine Urobilinogen 1.0 (<2.0) mg/dL Add Ur Microanalysis Reviewed Leukocyte Esterase Rfl 2+ H (Negative) RAMIN/UL Urine RBC 3-5 H (0-2) /hpf Urine WBC 51-100 H (0-3) /hpf Ur Squamous Epith Cells Many H (Few) /hpf Urine Bacteria None seen /hpf Urine Casts 6-10 Influenza A (RT-PCR) Negative (Negative) Influenza B (RT-PCR) Negative (Negative) RSV (RT-PCR) Negative (Negative) SARS-CoV-2 RNA (RT-PCR) Negative (Negative) Discharge Plan Discharge Clinical Impression: Acute UTI, Allodynia Patient Disposition: Home Condition: Stable Instructions: Antibiotic Form, Urinary Tract Infection in Women (ED), Paresthesia (ED) Additional Instructions: You should return to the emergency department if you develop severe nausea and vomiting and are unable to keep liquids down, if you develop severe back/flank or stomach pain, or if your symptoms are not clearly improving at home. Patient Language: Latvian Prescriptions: New cephalexin 500 mg capsule 500 mg PO Q8H Qty: 15 0RF No Action meloxicam 15 mg tablet 15 mg PO DAILY Qty: 90 2RF chlorthalidone 25 mg tablet See Rx Instructions .ROUTE .COMPLEX Qty: 90 2RF Dose Instruction: TAKE 1 TABLET BY MOUTH EVERY DAY Rx Instructions: TAKE 1 TABLET BY MOUTH EVERY DAY cyclobenzaprine 5 mg tablet See Rx Instructions .ROUTE .COMPLEX Qty: 90 1RF Dose Instruction: TAKE 1 TABLET BY MOUTH THREE TIMES A DAY NEEDED FOR MUSCLE SPASM Rx Instructions: TAKE 1 TABLET BY MOUTH THREE TIMES A DAY NEEDED FOR MUSCLE SPASM albuterol sulfate 90 mcg/actuation HFA aerosol inhaler 2 inh inhalation Q4H Qty: 8.5 5RF pantoprazole 40 mg tablet,delayed release (DR/EC) 40 mg PO QAM Qty: 90 1RF alprazolam 0.25 mg tablet 0.25 mg PO TID PRN (Reason: anxiety) Qty: 90 5RF Trelegy Ellipta 100-62.5-25 mcg blister with device See Rx Instructions .ROUTE .COMPLEX Qty: 60 5RF Dose Instruction: INHALE 1 PUFF DAILY Rx Instructions: INHALE 1 PUFF DAILY amoxicillin 500 mg capsule 500 mg PO Q8H Qty: 21 1RF amoxicillin-pot clavulanate 875-125 mg tablet 1 tablet PO BID Qty: 14 0RF prednisone 50 mg tablet 50 mg PO DAILY Qty: 5 0RF semaglutide (weight loss) 2.4 mg/0.75 mL pen injector 2.4 mg subcut WEEKLY Qty: 3 1RF Rx Instructions: administer weeks 13 through 16 of therapy Follow-up/Referrals: Quita Garrido MD [Primary Care Provider, Family Practice] - 1 Week
[2025-09-10 14:32] LABS: Alanine Aminotransferase 21 U/L (6-35); Albumin Level 4.4 g/dL (3.5-5.1); Alkaline Phosphatase 64 U/L (38-126); Anion Gap 6 mmol/L (4-12); Aspartate Amino Transferase 26 U/L (14-36); Bilirubin,Total 0.4 mg/dL (0.2-1.3); Blood Urea Nitrogen 17 mg/dL (7-17); Calcium 9.7 mg/dL (8.4-10.2); Carbon Dioxide 32 mmol/L (22-30); Chloride 98 mmol/L (98-107); Estimated CRCL calculation 55 ml/min; Estimated Glomerular Filt Rate 56; Glucose 101 mg/dL (65-110); Iron 60 ug/dL (37-170); Magnesium 1.7 mg/dL (1.6-2.3); Potassium 3.4 mmol/L (3.4-5.0); Sodium 136 mmol/L (137-145); Total Protein 8.0 g/dL (6.3-8.2)
[2025-09-10 14:38] LABS: Add Urine Microscopic? YES; Appearance Urine Turbid (Clear); Glucose Urine UA Negative (Negative); Leukocyte Esterase Ur 2+ LEU/UL (Negative); Need Manual Microscopic Reviewed; Nitrate Urine Negative (Negative); Specific Grav Ur 1.026 (1.001-1.035)
[2025-09-10 14:41] LABS: Percent Iron Saturation 17 % (20-50)
[2025-09-10 14:48] LABS: Influenza A QL RT-PCR Negative (Negative); Influenza B QL RT-PCR Negative (Negative); RSV RNA, RT-PCR Negative (Negative); SARS-CoV-2 RNA PCR Negative (Negative)
[2025-09-10 15:04] LABS: Thyroid Stimulating Hormone Reflex 1.040 uIU/mL (0.465-4.68)
[2025-09-10 15:06] VITALS: BP 98/77; PULSE 98; RESP 19; O2SAT 95
[2025-09-10 15:43] LABS: Vitamin B12 579.0 pg/mL (239-931)
[2025-09-10 16:00] VITALS: BP 115/68; PULSE 104; RESP 17; O2SAT 97
== END 2025-09-10 16:02 | disposition home or self-care (01) ==
PROVIDERS: Emergency Provider Emergency Medicine; PCP Family Medicine
DX: R20.2 Paresthesia of skin (principal); N39.0 Urinary tract infection, site not specified; F41.9 Anxiety disorder, unspecified; Z96.643 Presence of artificial hip joint, bilateral; Z86.16 Personal history of COVID-19; Z87.891 Personal history of nicotine dependence; Z79.899 Other long term (current) drug therapy
CPT/HCPCS: 36415; 80053; 81001; 82607; 82746; 83540; 83550; 83735; 84443; 85025; 87637; 96361; 96374; 99284; J1885; J7030